=== PATIENT | female | born 1955 | race Caucasian/White ===

== ENCOUNTER 2017-09-07 18:14 | Emergency (ER) | payer SELFPAY ==
[~2017-09-07] VITALS: Ht 162.6 cm; Wt 63.5 kg
[2017-09-07 18:24] VITALS: BP 132/86
--- NOTE | 2017-09-07 18:38 | NUR ---
MD AT BEDSIDE----DECLINED EKG
--- NOTE | 2017-09-07 18:39 | NUR ---
DC BY --- GAVE DC INSTRUCTIONS AND KIA CEJA DC HOME INSTRUCTIONS SIGNED BY PT.
[2017-09-07 18:40] VITALS: BP 132/86
--- NOTE | 2017-09-07 18:44 | NUR ---
PT STATED OKAY FOR DC HOME
== END 2017-09-07 18:39 | disposition home or self-care (01) ==
LOC: MED 18:14
DX: K30 Functional dyspepsia (principal)
CPT/HCPCS: 99283